=== PATIENT | male | born 1955 | race African-American/Black ===

== ENCOUNTER 2019-12-27 12:11 | Inpatient (IN) | payer MEDICAID, MEDICARE ==
[~2019-12-27] VITALS: Ht 180.3 cm; Wt 73.3 kg
[2019-12-27] MEDS ORDERED: KETO10DR3 OU (12:29)
[2019-12-27] MEDS ORDERED: SERT25TA5 PO (12:29)
[2019-12-27] MEDS ORDERED: DONE5TAB26 PO (12:29)
[2019-12-27] MEDS ORDERED: CYAN250010 PO (12:29)
[2019-12-27] MEDS ORDERED: TAMS-13 PO (12:29)
[2019-12-27] MEDS ORDERED: LISI-662 PO (12:29)
[2019-12-27 13:27] LABS: BASOPHILS % (AUTO) 0.9 % (0.0-2.0); EOSINOPHILS % (AUTO) 1.3 % (1.0-6.0); HEMATOCRIT 42.5 % (41-53); HEMOGLOBIN 13.8 g/dL (13.5-17.5); LYMPHOCYTES # (AUTO) 1.2 K/uL (1.0-4.8); LYMPHOCYTES % (AUTO) 21.4 % (22.0-44.0); MEAN CORPUSCULAR HEMOGLOBIN 27.5 pg (26.0-34.0); MEAN CORPUSCULAR HGB CONC 32.4 G/dL (31.0-37.0); MEAN CORPUSCULAR VOLUME 85 fL (80-100); MONOCYTES # (AUTO) 0.5 K/uL (0.1-1.0); MONOCYTES % (AUTO) 8.6 % (2.0-9.0); NEUTROPHILS # (AUTO) 3.7 K/uL (1.8-7.7); NEUTROPHILS % (AUTO) 67.8 % (40.0-70.0); PLATELET COUNT (AUTO) 182 K/uL (150-450); RED BLOOD CELL COUNT(AUTO) 5.02 MIL/uL (4.50-5.90); RED CELL DISTRIBUTION WIDTH 13.8 % (11.5-14.5)
[2019-12-27 13:39] LABS: ANION GAP 9 mmol/L (8-16); CALCIUM, TOTAL 9.1 mg/dL (8.8-10.5); CARBON DIOXIDE 27 mmol/L (22-29); CHLORIDE 103 mmol/L (98-107); CREATININE 0.98 mg/dL (0.60-1.30); GLOMERULAR FILTR. RATE CALC > 60 mL/min (>60); GLUCOSE,RANDOM 100 mg/dL (70-110); POTASSIUM 3.9 mmol/L (3.5-5.1); SODIUM SERUM 139 mmol/L (136-145); UREA NITROGEN, BLOOD 24 mg/dL (7-18)
[2019-12-27 13:45] LABS: ALANINE AMINOTRANSFERASE 32 U/L (12-78); ALKALINE PHOSPHATASE 53 U/L (46-116); ASPARTATE AMINOTRANSFERASE 26 U/L (15-37); BILIRUBIN,TOTAL 0.5 mg/dL (0.1-1.0); LIPASE 117 U/L (73-393); TOTAL PROTEIN, SERUM 7.5 g/dL (6.4-8.2)
[2019-12-27 13:52] LABS: LACTIC ACID 0.9 mmol/L (0.4-2.0)
[2019-12-27 13:53] LABS: B-TYPE NATRIURETIC PEPTIDE 14 pg/mL (0-100)
[2019-12-27] MEDS ORDERED: ACETAMINOPHEN 325 MG TABLET PO PRN (17:00)
[2019-12-27] MEDS ORDERED: 0.9% SODIUM CHLORIDE 10 ML SYRINGE IVP PRN (17:00)
[2019-12-27] MEDS ORDERED: ONDANSETRON HCL 4 MG/2 ML VIAL IVP PRN (17:00)
[2019-12-27 21:30] VITALS: BP 120/83
[2019-12-27] MEDS ORDERED: PNEUMOCOCCAL VACCINE POLYVALENT 0.5 ML VIAL [PPSV23] IM ONE (23:45)
[2019-12-28 00:01] VITALS: BP 101/68
[2019-12-28] MEDS ORDERED: OxyCODONE HCL/ACETAMINOPHEN 5-325 MG TABLET PO PRN ×2 (02:45)
[2019-12-28] MEDS ORDERED: 0.9% SODIUM CHLORIDE 10 ML SYRINGE IVP PRN (02:45)
[2019-12-28] MEDS ORDERED: ONDANSETRON HCL 4 MG/2 ML VIAL IVP PRN (02:45)
[2019-12-28] MEDS: DOCUSATE SODIUM 100 MG CAPSULE PO SCH ×2 (02:45→08:44)
[2019-12-28] MEDS ORDERED: ACETAMINOPHEN 325 MG TABLET PO PRN (02:45)
[2019-12-28] MEDS ORDERED: MAGNESIUM HYDROXIDE SUSPENSION 30 ML UDCUP PO PRN (02:45)
[2019-12-28 04:26] VITALS: BP 92/64
[2019-12-28 05:34] LABS: APPEARANCE,URINE CLEAR (CLEAR); BILIRUBIN,URINE NEGATIVE (NEGATIVE); GLUCOSE, URINE (UA) NEGATIVE (NEGATIVE); KETONES,URINE 15 mg/dL (NEGATIVE); LEUKOCYTE ESTERASE ,URINE NEGATIVE (NEGATIVE); NITRATE,URINE NEGATIVE (NEGATIVE); OCCULT BLOOD,URINE NEGATIVE (NEGATIVE); PH,URINE 6.5 (5.0-8.0); PROTEIN,URINE NEGATIVE (NEGATIVE); UROBILINOGEN,URINE 0.2 mg/dL (<=1.0)
[2019-12-28 05:50] LABS: BACTERIA,URINE Rare /HPF (None Seen); RBC,URINE 0-2 /HPF (0-2); SQUAMOUS EPITHELIAL CELL,UR Rare /LPF (None Seen); WBC,URINE 0-2 /HPF (0-5)
[2019-12-28 07:26] VITALS: BP 98/54
[2019-12-28] MEDS: LISINOPRIL 20 MG TABLET PO SCH (08:44)
[2019-12-28] MEDS: TAMSULOSIN HCL 0.4 MG CAPSULE PO SCH (08:44)
[2019-12-28] MEDS: SERTRALINE HCL 50 MG TABLET PO SCH (08:45)
[2019-12-28] MEDS: SODIUM CHLORIDE 0.9% 1,000 ML IV SCH ×2 (09:01→18:03)
[2019-12-28 11:02] VITALS: BP 97/65
[2019-12-28] MEDS ORDERED: DOCUSATE SODIUM 100 MG CAPSULE PO PRN (11:30)
[2019-12-28] MEDS ORDERED: SODIUM CHLORIDE 0.9% 100 ML ONE (12:02)
[2019-12-28] MEDS ORDERED: IOVERSOL 350 MG/ML 100 ML VIAL ONE (12:02)
[2019-12-28] MEDS: PANTOPRAZOLE SODIUM 40 MG/VIAL IVP SCH (12:52)
[2019-12-28 14:34] VITALS: BP 100/66
[2019-12-28 19:24] VITALS: BP 94/60
[2019-12-28] MEDS: DONEPEZIL HCL 5 MG TABLET PO SCH (20:44)
[2019-12-29] VITALS (8 sets, daily range): BP systolic 103–145; BP diastolic 59–85
[2019-12-29] MEDS: SODIUM CHLORIDE 0.9% 1,000 ML IV SCH ×2 (05:28→14:59)
[2019-12-29 07:33] LABS: EOSINOPHILS % (AUTO) 2.4 % (1.0-6.0); HEMATOCRIT 38.8 % (41-53); HEMOGLOBIN 12.9 g/dL (13.5-17.5); LYMPHOCYTES # (AUTO) 1.5 K/uL (1.0-4.8); LYMPHOCYTES % (AUTO) 29.8 % (22.0-44.0); MEAN CORPUSCULAR HEMOGLOBIN 27.9 pg (26.0-34.0); MEAN CORPUSCULAR HGB CONC 33.2 G/dL (31.0-37.0); MEAN CORPUSCULAR VOLUME 84 fL (80-100); MONOCYTES # (AUTO) 0.5 K/uL (0.1-1.0); MONOCYTES % (AUTO) 11.1 % (2.0-9.0); NEUTROPHILS # (AUTO) 2.7 K/uL (1.8-7.7); NEUTROPHILS % (AUTO) 55.7 % (40.0-70.0); PLATELET COUNT (AUTO) 163 K/uL (150-450); RED BLOOD CELL COUNT(AUTO) 4.62 MIL/uL (4.50-5.90); RED CELL DISTRIBUTION WIDTH 13.7 % (11.5-14.5)
[2019-12-29 08:16] LABS: ANION GAP 10 mmol/L (8-16); CALCIUM, TOTAL 8.3 mg/dL (8.8-10.5); CARBON DIOXIDE 24 mmol/L (22-29); CHLORIDE 106 mmol/L (98-107); CHOL/HDL RATIO 2.3 (4.2-7.3); CHOLESTEROL 149 mg/dL (131-200); CREATININE 0.97 mg/dL (0.60-1.30); FREE T4 (FREE THYROXINE) 0.97 ng/dL (0.76-1.46); GLOMERULAR FILTR. RATE CALC > 60 mL/min (>60); GLUCOSE,RANDOM 75 mg/dL (70-110); HDL CHOLESTEROL 64 mg/dL (40-60); LDL CHOL (CALC.) 79 mg/dL (0-130); POTASSIUM 3.8 mmol/L (3.5-5.1); SODIUM SERUM 140 mmol/L (136-145); THYROID STIMULATING HORMONE 1.54 uIU/mL (0.36-3.74); TRIGLYCERIDES 28 mg/dL (15-150); UREA NITROGEN, BLOOD 16 mg/dL (7-18)
[2019-12-29] MEDS: SERTRALINE HCL 50 MG TABLET PO SCH (08:37)
[2019-12-29] MEDS: PANTOPRAZOLE SODIUM 40 MG/VIAL IVP SCH (08:37)
[2019-12-29] MEDS: TAMSULOSIN HCL 0.4 MG CAPSULE PO SCH (08:37)
[2019-12-29] MEDS: LISINOPRIL 20 MG TABLET PO SCH (09:00)
[2019-12-29] MEDS: DONEPEZIL HCL 5 MG TABLET PO SCH (20:10)
[2019-12-30] MEDS: SODIUM CHLORIDE 0.9% 1,000 ML IV SCH ×2 (01:20→11:15)
[2019-12-30 04:50] VITALS: BP 139/68
[2019-12-30 06:41] LABS: BASOPHILS % (AUTO) 0.7 % (0.0-2.0); EOSINOPHILS % (AUTO) 2.7 % (1.0-6.0); HEMATOCRIT 39.3 % (41-53); HEMOGLOBIN 12.9 g/dL (13.5-17.5); LYMPHOCYTES # (AUTO) 1.5 K/uL (1.0-4.8); MEAN CORPUSCULAR HEMOGLOBIN 27.8 pg (26.0-34.0); MEAN CORPUSCULAR HGB CONC 32.8 G/dL (31.0-37.0); MEAN CORPUSCULAR VOLUME 85 fL (80-100); MONOCYTES # (AUTO) 0.6 K/uL (0.1-1.0); MONOCYTES % (AUTO) 9.7 % (2.0-9.0); NEUTROPHILS # (AUTO) 3.5 K/uL (1.8-7.7); NEUTROPHILS % (AUTO) 60.9 % (40.0-70.0); PLATELET COUNT (AUTO) 167 K/uL (150-450); RED BLOOD CELL COUNT(AUTO) 4.64 MIL/uL (4.50-5.90); RED CELL DISTRIBUTION WIDTH 13.7 % (11.5-14.5)
[2019-12-30 07:02] LABS: CALCIUM, TOTAL 8.9 mg/dL (8.8-10.5); CHLORIDE 105 mmol/L (98-107); CREATININE 0.95 mg/dL (0.60-1.30); GLOMERULAR FILTR. RATE CALC > 60 mL/min (>60); GLUCOSE,RANDOM 79 mg/dL (70-110); POTASSIUM 3.6 mmol/L (3.5-5.1); SODIUM SERUM 137 mmol/L (136-145); UREA NITROGEN, BLOOD 13 mg/dL (7-18)
[2019-12-30 07:09] LABS: CARBON DIOXIDE 25 mmol/L (22-29)
[2019-12-30 07:45] LABS: ANION GAP 11 mmol/L (8-16)
[2019-12-30 08:23] VITALS: BP 142/98
[2019-12-30] MEDS: SERTRALINE HCL 50 MG TABLET PO SCH (08:47)
[2019-12-30] MEDS: PANTOPRAZOLE SODIUM 40 MG/VIAL IVP SCH (08:47)
[2019-12-30] MEDS: TAMSULOSIN HCL 0.4 MG CAPSULE PO SCH (08:47)
[2019-12-30] MEDS: LISINOPRIL 20 MG TABLET PO SCH (08:47)
[2019-12-30] MEDS ORDERED: [UNRECOGNIZED DRUG - OTHER] OU SCH (09:00)
[2019-12-30 11:01] VITALS: BP 141/96
[2019-12-30 15:24] VITALS: BP 112/72
[2019-12-30] MEDS: CYANOCOBALAMIN 100 MCG TABLET PO SCH (16:37)
[2019-12-30] MEDS: DONEPEZIL HCL 5 MG TABLET PO SCH (20:24)
[2019-12-30 20:29] VITALS: BP 138/84
[2019-12-31 00:09] VITALS: BP 126/79
[2019-12-31 04:37] VITALS: BP 127/80
[2019-12-31] MEDS: TAMSULOSIN HCL 0.4 MG CAPSULE PO SCH (09:06)
[2019-12-31] MEDS: PANTOPRAZOLE SODIUM 40 MG/VIAL IVP SCH (09:06)
[2019-12-31] MEDS: CYANOCOBALAMIN 100 MCG TABLET PO SCH (09:07)
[2019-12-31] MEDS: LISINOPRIL 20 MG TABLET PO SCH (09:07)
[2019-12-31] MEDS: SERTRALINE HCL 50 MG TABLET PO SCH (09:07)
[2019-12-31 09:10] VITALS: BP 120/72
[2019-12-31 11:48] VITALS: BP 100/66
== END 2019-12-31 15:35 | disposition home or self-care (01) | DRG 392 ==
LOC: EMS 12:13 → 5S 18:42
PROVIDERS: ADMIT Internal Medicine; ATTEND Internal Medicine
DX: K29.70 Gastritis, unspecified, without bleeding (principal); E86.0 Dehydration; F03.90 Unspecified dementia, unspecified severity, without behavioral disturbance, psychotic disturbance, mood disturbance, and anxiety; R62.7 Adult failure to thrive; F41.9 Anxiety disorder, unspecified; I10 Essential (primary) hypertension; Z68.22 Body mass index [BMI] 22.0-22.9, adult
CPT/HCPCS: 70450; 74177; 83605; 84145; 84439; 84443; 92526; 93005; 93306; 97161; C9113; J7030; J7050